=== PATIENT | male | born 1940 | race Caucasian/White ===

== ENCOUNTER 2017-07-26 12:42 | Emergency (ER) | payer MEDICARE ==
[2017-07-26] MEDS ORDERED: Acetaminophen 500 MG TAB ONE (13:06)
[2017-07-26] MEDS ORDERED: Acetaminophen 325 MG TAB ONE (13:13)
[2017-07-26] MEDS ORDERED: Clindamycin/D5W 600 mg/50 ml Premix Bag ONE (13:21)
[2017-07-26 13:32] LABS: #Basophils 0.1 thou/uL (0.0-0.2); #Lymphocytes 1.1 thou/uL (1.20-3.40); #Monocytes 0.9 thou/uL (0.11-0.59); #Neutrophils 12.2 thou/uL (1.40-6.50); %Basophils 0.4 % (0.0-1.0); %Eosinophils 0.2 % (0.0-10.0); %Lymphocytes 7.9 % (21.0-51.0); %Monocytes 6.6 % (0.0-10.0); Hematocrit 46.3 % (42.0-52.0); Mean Platelet Volume 6.7 fL (7.4-10.4); Red Blood Cell (RBC) Count 5.05 mill/uL (4.70-6.10); White Blood Cell (WBC) Count 14.4 thou/uL (4.8-10.8)
[2017-07-26 13:39] LABS: Lactic Acid - Sepsis 1.6 mmol/L (0.5-2.2)
[2017-07-26 13:45] LABS: ALT (SGPT) 17 U/L (8-55); AST (SGOT) 19 U/L (5-34); Alkaline Phosphatase 103 U/L (40-150); Anion Gap 17 mmol/L (10-20); BUN (Urea Nitrogen) 11 mg/dL (8.4-25.7); Bilirubin, Total 1.2 mg/dL (0.2-1.2); Calc. Creatinine Clearance 0 mL/min (70-130); Calcium 9.4 mg/dL (7.8-10.44); Carbon Dioxide 25 mmol/L (23-31); Chloride 97 mmol/L (98-107); Estimated GFR-MDRD 68; Globulin 3.3 g/dL (2.4-3.5); Protein, Total 7.4 g/dL (5.8-8.1)
== END 2017-07-26 14:33 | disposition home or self-care (01) ==
LOC: SCSER 12:42
DX: L03.211 Cellulitis of face (principal); E03.9 Hypothyroidism, unspecified; F41.9 Anxiety disorder, unspecified
CPT/HCPCS: 80053; 83605; 85025; 87040; 96365; J3490